=== PATIENT | male | born 1960 | race Caucasian/White ===

== ENCOUNTER → 2023-06-01 | Outpatient (CLI) | payer BC ==
--- NOTE | 2023-06-01 12:51 | XR ---
EXAMINATION TYPE: XR chest 2V DATE OF EXAM: 06/01/2023 12:37 PM CLINICAL INDICATION:Male, 62 years old with history of R91.8 CH XR 2V; COMPARISON: None TECHNIQUE: XR chest 2V Frontal and lateral views of the chest. FINDINGS: Lungs/Pleura: There is no evidence of pleural effusion, focal consolidation, or pneumothorax. Pulmonary vascularity: Unremarkable. Heart/mediastinum: Cardiomediastinal silhouette is unremarkable. Musculoskeletal: No acute osseous pathology. IMPRESSION: No acute cardiopulmonary disease/process.
== END | disposition home or self-care (01) ==
LOC: RADXRMAIN 12:19
PROVIDERS: ATTEND Internal Medicine
DX: R91.8 Other nonspecific abnormal finding of lung field (principal)
CPT/HCPCS: 71046

== ENCOUNTER → 2023-06-16 | Outpatient (CLI) | payer BC ==
--- NOTE | 2023-06-17 05:59 | CT ---
EXAMINATION TYPE: CT chest wo con DATE OF EXAM: HISTORY: Cough x 5 weeks TECHNIQUE: CT scan of the thorax is performed without IV contrast. Automated Exposure Control for D ose Reduction was Utilized. CT DLP: 571.0 mGycm. COMPARISON: None FINDINGS: LUNGS/PLEURAL SPACES: The airways are patent. There is diffuse mild bronchial wall thickening and the re is reticular nodular opacity throughout much of the posterior right lower lobe, these changes are consistent with inflammatory/infectious etiology. There is no jeannine pulmonary consolidation. No major atelectasis. No evidence of pulmonary edema. Pleural spaces are negative. MEDIASTINUM: Lack of IV contrast is noted to limit evaluation for mediastinal and especially hilar ad enopathy. There are no definitive greater than 1 cm hilar or mediastinal lymph nodes. Thyroid and eso phagus are unremarkable. There is no cardiomegaly or pericardial effusion, but left and right coronary calcifications noted. A gwendolyn is not dilated. MPA is not dilated UPPER ABDOMEN: 6 cm hiatal hernia noted. IMPRESSION: Inflammatory/infectious pulmonary findings. Right and left coronary calcifications.
== END | disposition home or self-care (01) ==
LOC: RADCTMAIN 16:26
PROVIDERS: ATTEND Family Medicine
DX: J98.4 Other disorders of lung (principal); R91.8 Other nonspecific abnormal finding of lung field
CPT/HCPCS: 71250

== ENCOUNTER → 2023-07-18 | Outpatient (CLI) | payer BC ==
--- NOTE | 2023-07-20 11:15 | MR ---
EXAMINATION TYPE: MR Prostate wo/w con DATE OF EXAM: 07/18/2023 7:19 AM COMPARISON: CT 03/13/2022 CLINICAL INDICATION:Male, 62 years old with history of R97.20 ELEVATED PROSTATE SPECIFIC ANTIGEN; El evated PSA. TECHNIQUE: Multi-planar, multi-sequence imaging of the pelvis is performed prior to and following the uncomplicated administration of bolus intravenous gadolinium. CONTRAST: 9 Gadavist Interpretive Criteria: PI-RADS v2.1 SERUM PSA: 0.87 on May 2022. 10.7 on June 2023.. SURGICAL PATHOLOGY: No data available. FINDINGS: Prostatic dimensions: 5.7 x 5.5 x 4.8 cm. Ellipsoid Volume:78.79 (PSA density=0.14 ng/mL/mL) CENTRAL GLAND (Central and Transition Zones/CZ+TZ): Multiple bilateral, heterogenous appearing hypertrophic stromal nodules, without suspicious lesion. M edian lobe hypertrophy with protrusion into the base of the bladder. (PI-RADS 2) PERIPHERAL ZONE (PZ): Bilateral linear, indistinct wedgelike areas of low ADC, and low T2 signal, No evidence of masslike a bnormality, or localized perfusional hypervascularity, to further suggest a focus of clinically signi ficant prostate cancer. (PI-RADS 2) SEMINAL VESICLES (SV): Symmetric and unremarkable. PERIPROSTATIC TISSUES: Unremarkable. LYMPH NODES: No enlarged pelvic lymph node. REMAINING PELVIS: Bladder wall is within normal limits given distention. No abnormal free or organized intrapelvic fluid collection. No pathologic bowel dilation or mural thickening. Colonic diverticula are present. No hernia visualized OSSEOUS STRUCTURES: No suspicious osseous abnormality. IMPRESSION: 1. No specific features for high-risk prostate cancer. Maximum PI-RADS score: 2. 2. Moderate BPH, estimated gland volume 78.79 mL. 3. No suspicious osseous lesion. No lymphadenopathy. No evidence of prostate adenocarcinoma involving the periprostatic tissues.
== END | disposition home or self-care (01) ==
LOC: RADMRIMAIN 06:18
PROVIDERS: ATTEND Urology
DX: N40.0 Benign prostatic hyperplasia without lower urinary tract symptoms (principal); R97.20 Elevated prostate specific antigen [PSA]
CPT/HCPCS: 72197; A9585

== ENCOUNTER → 2023-08-03 | Outpatient (CLI) | payer BC ==
[2023-08-03 16:34] LABS: Chol/HDL Ratio 4.36 Ratio; LDL Cholesterol,Calculated 141.3 mg/dL (0.0-131.0)
[2023-08-04 03:49] LABS: Apolipoprotein A1 156 mg/dL (110 - 205)
[2023-08-04 09:53] LABS: Lipoprotein A <5 mg/dL (0-30)
== END | disposition home or self-care (01) ==
LOC: LABWHC1 07:12
PROVIDERS: ATTEND Internal Medicine
DX: I25.10 Atherosclerotic heart disease of native coronary artery without angina pectoris (principal); E78.5 Hyperlipidemia, unspecified
CPT/HCPCS: 36415; 80061; 82172; 83695

== ENCOUNTER → 2023-08-29 | Outpatient (CLI) | payer BC ==
[2023-08-29 11:28] LABS: ALT 37 U/L (10-49); AST 27 U/L (14-35); Chol/HDL Ratio 5.66 Ratio; LDL Cholesterol,Calculated 153.5 mg/dL (0.0-131.0)
== END | disposition home or self-care (01) ==
LOC: LABWHC1 07:18
PROVIDERS: ATTEND Internal Medicine
DX: E78.2 Mixed hyperlipidemia (principal)
CPT/HCPCS: 36415; 80061; 84450; 84460

== ENCOUNTER → 2023-09-22 | Outpatient (CLI) | payer BC ==
--- NOTE | 2023-09-22 12:09 | CT ---
EXAMINATION TYPE: CT chest w con DATE OF EXAM: 09/22/2023 COMPARISON: 06/16/2023 and 03/13/2022 HISTORY: 63-year-old male J18.1 LOBAR PNEUMONIA, UNSPECIFIED ORGANISM TECHNIQUE: Contiguous axial scanning of the chest after the administration of 100 mL of Isovue 300. Coronal/sagittal reconstructions performed. CT DLP: 365mGycm. Automatic exposure control utilized for a dose reduction. FINDINGS: The heart is normal size without pericardial effusion. Aorta is normal caliber within the infarct versus a branching anatomy. An 8 mm lower right paratracheal lymph node is slightly larger but probably reactive/post inflammator y. There is a 1.7 cm right hilar lymph node and 1.3 cm right bronchial lymph node. Otherwise, no thor acic lymphadenopathy by CT size criteria. Mild dependent atelectasis. Mild diffuse bronchial wall thickening. No consolidation or pleural effus ion. The previous tree-in-bud infiltrate posterior right midlung and right base have resolved. Small to moderate-sized hiatal hernia. Underlying fatty infiltration of the liver. Partially visualiz ed exophytic cyst posterior left kidney measuring up to 2.4 cm. There is a splenic artery aneurysm measuring 2.2 cm, relatively unchanged compared to 03/13/2022. Bones: No osseous destructive process. IMPRESSION: 1. Previous tree-in-bud infiltrate posterior right midlung and right base have resolved. 2. A few prominent lymph nodes at the right hilum measures 1.7 cm, likely reactive/post inflammatory. Six-month follow-up CT chest to ensure stability/resolution. 3. Small to moderate-sized hiatal hernia and hepatic steatosis. Stable 2.2 cm splenic artery aneurysm compared to 2021.
== END | disposition home or self-care (01) ==
LOC: RADCTMAIN 07:10
PROVIDERS: ATTEND Internal Medicine
DX: K44.9 Diaphragmatic hernia without obstruction or gangrene (principal); J18.1 Lobar pneumonia, unspecified organism; K76.0 Fatty (change of) liver, not elsewhere classified; I72.8 Aneurysm of other specified arteries; R91.8 Other nonspecific abnormal finding of lung field
CPT/HCPCS: 71260; Q9967

== ENCOUNTER → 2023-11-03 | Outpatient (CLI) | payer BC ==
[2023-11-03 15:51] VITALS: BP 165/106; PULSE 86; RESP 16; TEMP 97.8
--- NOTE | 2023-11-03 16:09 | P.SLEEP ---
History of Present Illness DATE: 11/03/2023 CONSULTATION/NEW PATIENT EVALUATION HISTORY OF PRESENT ILLNESS/SLEEP-WAKE EVALUATION: 63-year-old gentleman had b een evaluated in the sleep center for possible obstructive sleep apnea hypopnea syndrome. SLEEP SCHEDULE: Usually sleep schedule from 9 PM to 5 AM on weekdays and until 6 AM on weekend. FALLING ASLEEP: No problems with falling asleep. DURING SLEEP: Patient has loud snoring and multiple awakenings from sleep. No history of hypnogogical hallucinations, sleep paralysis, or cataplexy. DURING THE DAY/WAKE STATE: Patient feels sleepiness during the day. [place] sleepiness scale is significantly increased to 15. Patient may take up to 2 naps. PAST MEDICAL HISTORY: BPH, acid reflux, allergy,. PAST SURGICAL HISTORY: Skull fracture 1982, right eye surgery and enucleation secondary to trauma in 1992. MEDICATIONS: Please see below. SOCIAL HISTORY: Please see below. FAMILY HISTORY: Hypertension, heart problems, cancer. REVIEW OF SYSTEMS: Multiple awakenings from sleep, sleepiness during the day. No fevers. No double vision. No recent chest pain. No shortness of breath. No abdominal pain. No bleeding episodes. No blood in urine. No seizure episodes. PHYSICAL EXAMINATION: GENERAL: A pleasant patient without any distress. VITAL SIGNS: Please see below. Weight 197 pounds, BMI 30.8. HEENT: MEGAN, EOMI. Evaluation of oropharynx showed tongue protrudes midline, low position of soft palate Mallampati 4. NECK: Supple. No JVD. Thyroid is not palpable. 16.5 inches in circumference. LUNGS: Clear to percussion and to auscultation. Good air exchange. No wheezing or rhonchi. HEART: S1, S2 regular. No murmurs, gallops or rubs. ABDOMEN: Soft and nontender. Bowel sounds are present. No organomegaly appreciated. EXTREMITIES: No clubbing or cyanosis. RECEPTIONIST/TELEPHONE OPERATOR: Awake, alert, and oriented x3. Cranial nerves 2 to 7 intact. There is no fasciculation or atrophy noted. No focal deficits observed. Right-sided blindness. ASSESSMENT: 1. Snoring, multiple awakenings from sleep, extremely low position of soft palate Mallampati 4, sleepiness with [place] Sleepiness Scale 15. Obstructive sleep apnea hypopnea syndrome. 2. History of BPH. 3. Acid reflux. 4. Allergy. 5 status post skull fracture. 6 . Status post right eye trauma, surgery and enucleation. PLAN: 1. Polysomnography for evaluation of patient's breathing during sleep. 2. CPAP/BiPAP titration if sleep study confirms obstructive sleep apnea- hypopnea syndrome. 3. Preferable position during sleep on the side. 4. No driving if patient feels any sleepiness. Patient is aware of civil and criminal liability for unsafe driving. 5. Sleep hygiene with regular sleep time for at least 7.5-8 hour s. 6. Watching weight. Thank you very much for referring this patient for consultation. Sincerely, Daniel Melendez MD, PhD, FAASM. Diplomat of [place] [employer], Sleep Medicine Board by [place] [employer] [place] [employer] Industrial Relations Specialist of [facility] [place] Past Medical History Past Medical History: GERD/Reflux Additional Past Medical History / Comment(s): ENVIROMENTAL ALLERGIES ON LOLA History of Any Multi-Drug Resistant Organisms: None Reported Past Surgical History: Hernia Repair Additional Past Surgical History / Comment(s): RT MIDDLE FINGER CUT TIP OFF, RT EYE PROSTATIC Past Anesthesia/Blood Transfusion Reactions: No Reported Reaction Past Psychological History: No Psychological Hx Reported Smoking Status: Former smoker Past Alcohol Use History: Occasional Past Drug Use History: None Reported - Past Family History Father Family Medical History: Cancer, Coronary Artery Disease (CAD), Hyperlipidemia, Hypertension Mother Family Medical History: Coronary Artery Disease (CAD), Hypertension Medications and Allergies Home Medications Medication Instructions Recorded Confirmed Type Fexofenadine HCl [Lola Allergy] 180 mg PO DAILY 11/03/23 11/03/23 History Omeprazole 20 mg PO DAILY 11/03/23 11/03/23 History Tamsulosin [Flomax] 0.4 mg PO DAILY 11/03/23 11/03/23 History Physical Exam Vitals: Vital Signs Temp Pulse Resp BP Pulse Ox 11/03/23 15:50 97.8 F 86 16 165/106 95 Intake and Output 11/03/23 11/03/23 11/03/23 06:59 14:59 22:59 Other: Weight 89.358 kg Sleep Note - Sleep Data ESS Total: 15 - Sleep Note Sleep Note: Temperature: 97.8 F Pulse Rate: 86 Respiratory Rate: 16 Blood Pressure: 165/106 SpO2: 95 Height: 5 ft 7 in Weight: 89.358 kg BMI: Neck Circumference: 16.5
== END ==
LOC: 3 N SLEEP 14:58
PROVIDERS: ATTEND Internal Medicine
DX: G47.33 Obstructive sleep apnea (adult) (pediatric) (principal); K21.9 Gastro-esophageal reflux disease without esophagitis; N40.0 Benign prostatic hyperplasia without lower urinary tract symptoms; T78.40XA Allergy, unspecified, initial encounter; Z86.69 Personal history of other diseases of the nervous system and sense organs; Z87.81 Personal history of (healed) traumatic fracture; Z98.890 Other specified postprocedural states; Z87.891 Personal history of nicotine dependence
CPT/HCPCS: 99211

== ENCOUNTER → 2023-12-06 | Outpatient (CLI) | payer BC ==
--- NOTE | 2023-12-07 11:41 | P.PCN ---
Description of Procedure: CLINICAL: A home sleep apnea test has been done for confirmation of possible obstructive sleep apnea-hypopnea syndrome. DESCRIPTION OF PROCEDURE: RESULTS: Recording time was 7 hours 43 minutes. Evaluation time was 7 hours 21 minutes. Evaluation time is sufficient for making conclusion about results of the test. Raw data of sleep recording has been reviewed and is adequate. Respiratory channel showed 1 apneas and 46 hypopneas. Apnea-hypopnea index was 6.4 per hour. Pulse rate in the range between minimum 49, maximum 100, average 61 by computer calculation. Lowest desaturation was 80%. IMPRESSION: 1. Mild obstructive Sleep Apnea Hypopnea Syndrome. Patient has symptoms of excessive daytime sleepiness with extremely high [place] Sleepiness Scale of 15. Please see other impressions from consultation. PLAN: 1. The patient will be started on auto-PAP treatment for correction of respiratory abnormallities during sleep. 2. I will see patient for follow up visit to discuss results of the test, evaluate clinical response on treatment with PAP therapy and make any necessary adjustments related to mask fitting, pressure, and humidification. 3. Watching weight. 4. Sleep hygiene with regular time in bed for at least 8 hours. 5. No driving if feeling any sleepiness. 6. If patient will continue to have symptoms of significant excessive daytime sleepiness while on treatment with CPAP for mild obstructive sleep apnea hypopnea syndrome, we may consider multiple sleep latency test for differential diagnosis with hypersomnia. Thank you very much for allowing me to participate in the management of your patient. Sincerely, Daniel Melendez MD, PhD, FAASM Diplomat of [place] [employer] Sleep Medicine Board of [place] [employer] Manager Of Transportation of [facility] [place] cc:Gonzalo Rothman MD
== END ==
LOC: 3 N SLEEP 16:30
PROVIDERS: ATTEND Internal Medicine
DX: G47.33 Obstructive sleep apnea (adult) (pediatric) (principal); G47.10 Hypersomnia, unspecified

== ENCOUNTER 2024-04-30 06:46 | Emergency (ER) | payer BC ==
[2024-04-30 06:52] VITALS: RESP 18; TEMP 97.4
[2024-04-30] MEDS: OXYMETAZOLINE 0.05% NASL SPRAY 1 SPRAY BOTTLE NASAL STA (07:22)
[2024-04-30] MEDS: hydrALAZINE HCL 20 MG/ML 1 ML VIAL IVP STA ×2 (07:31→07:51)
[2024-04-30 07:39] LABS: Basophils % (A) 1 %; Eosinophils # (A) 0.2 k/uL (0-0.7); Eosinophils % (A) 2 %; HCT 49.4 % (39.0-53.0); HGB 16.4 gm/dL (13.0-17.5); Lymphocytes # (A) 1.8 k/uL (1.0-4.8); Lymphocytes % (A) 25 %; MCH 27.1 pg (25.0-35.0); MCHC 33.1 g/dL (31.0-37.0); MCV 81.7 fL (80.0-100.0); Mean Platelet Volume 6.9; Monocytes # (A) 0.6 k/uL (0-1.0); Monocytes % (A) 8 %; Neutrophils # (A) 4.5 k/uL (1.3-7.7); Neutrophils % (A) 62 %; Platelet Count 185 k/uL (150-450); RBC 6.05 m/uL (4.30-5.90); RDW 14.4 % (11.5-15.5); WBC 7.4 k/uL (3.8-10.6)
[2024-04-30] MEDS: TRANEXAMIC ACID 1,000 MG/10 ML VIAL MISCELLANE ONE (07:44)
--- NOTE | 2024-04-30 07:49 | ED ---
ENT HPI - General Chief complaint: ENT Stated complaint: Nose bleed Time Seen by Provider: 04/30/24 06:53 Source: patient, RN notes reviewed Mode of arrival: ambulatory Limitations: no limitations - History of Present Illness Initial comments: 63-year-old male presents emergency department chief complaint of epistaxis. Patient states he has been having on and off bleeding out of his right nostril. Patient states that he usually gets it to stop but states this wants to still bleeding minimally. Patient states he recently has a history of hypertension but is not on any medications. He denies any headache or dizziness no chest pain or shortness of breath. - Related Data Home Medications Medication Instructions Recorded Confirmed Fexofenadine HCl [Lola Allergy] 180 mg PO DAILY 11/03/23 11/03/23 Omeprazole 20 mg PO DAILY 11/03/23 11/03/23 Tamsulosin [Flomax] 0.4 mg PO DAILY 11/03/23 11/03/23 Previous Rx's Medication Instructions Recorded lisinopriL [Zestril] 10 mg PO DAILY #30 tab 04/30/24 Allergies Allergy/AdvReac Type Severity Reaction Status Date / Time No Known Allergies Allergy Verified 04/30/24 06:47 Review of Systems ROS Statement: Those systems with pertinent positive or pertinent negative responses have been documented in the HPI. ROS Other: All systems not noted in ROS Statement are negative. Past Medical History Past Medical History: GERD/Reflux Additional Past Medical History / Comment(s): ENVIROMENTAL ALLERGIES ON LOLA History of Any Multi-Drug Resistant Organisms: None Reported Past Surgical History: Hernia Repair Additional Past Surgical History / Comment(s): RT MIDDLE FINGER CUT TIP OFF, RT EYE PROSTATIC Past Anesthesia/Blood Transfusion Reactions: No Reported Reaction Past Psychological History: No Psychological Hx Reported Smoking Status: Former smoker Past Alcohol Use History: Occasional Past Drug Use History: None Reported - Past Family History Father Family Medical History: Cancer, Coronary Artery Disease (CAD), Hyperlipidemia, Hypertension Mother Family Medical History: Coronary Artery Disease (CAD), Hypertension General Exam Limitations: no limitations General appearance: alert, in no apparent distress Head exam: Present: atraumatic, normocephalic, normal inspection Eye exam: Present: normal appearance, PERRL, EOMI. Absent: scleral icterus, conjunctival injection, periorbital swelling ENT exam: Present: mucous membranes moist, other (Minimal bleeding from right nare). Absent: normal exam Neck exam: Present: normal inspection, full ROM. Absent: tenderness, meningismus, lymphadenopathy Respiratory exam: Present: normal lung sounds bilaterally. Absent: respiratory distress, wheezes, rales, rhonchi, stridor Cardiovascular Exam: Present: regular rate, normal rhythm, normal heart sounds. Absent: systolic murmur, diastolic murmur, rubs, gallop, clicks Course Vital Signs 04/30/24 04/30/24 04/30/24 06:47 07:29 07:45 Temperature 97.4 F L Pulse Rate 82 83 Respiratory 18 18 Rate Blood Pressure 184/116 190/124 177/119 O2 Sat by Pulse 95 98 Oximetry 04/30/24 04/30/24 04/30/24 08:00 08:13 08:26 Temperature Pulse Rate 90 80 Respiratory 18 Rate Blood Pressure 172/107 159/103 148/96 O2 Sat by Pulse 96 96 Oximetry Medical Decision Making - Medical Decision Making Was pt. sent in by a medical professional or institution ([facility], [facility], urgent care, hospital, or long term...) When possible be specific @ -No Did you speak to anyone other than the patient for history (EMS, parent, family, police, friend...)? What history was obtained from this source @ -No Did you review nursing and triage notes (agree or disagree)? Why? @ -I reviewed and agree with nursing and triage notes Were old charts reviewed (outside hosp., previous admission, EMS record, old EKG, old radiological studies, urgent care reports/EKG's, long term records)? Report findings @ -No old charts were reviewed Differential Diagnosis (chest pain, altered mental status, abdominal pain women, abdominal pain men, vaginal bleeding, weakness, fever, dyspnea, syncope, headache, dizziness, GI bleed, back pain, seizure, CVA, palpatations, mental health, musculoskeletal)? @ -Epistaxis, nasal abrasion, septal hematoma EKG interpreted by me (3pts min.). @ -None X-rays interpreted by me (1pt min.). @ -None done CT interpreted by me (1pt min.). @ -None done U/S interpreted by me (1pt. min.). @ -None done What testing was considered but not performed or refused? (CT, X-rays, U/S, labs)? Why? @ -None What meds were considered but not given or refused? Why? @ -None Did you discuss the management of the patient with other professionals (professionals i.e. , PA, [facility], lab, RT, psych nurse, social security benefits interviewer, liner reroll tender, teacher, air support control officer, case coordinator)? Give summary @ -No Was smoking cessation discussed for >3mins.? @ -No Was critical care preformed (if so, how long)? @ -No Were there social determinants of health that impacted care today? How? (Homelessness, low income, unemployed, alcoholism, drug addiction, transportation, low edu. Level, literacy, decrease access to med. care, shelter, rehab)? @ -No Was there de-escalation of care discussed even if they declined (Discuss DNR or withdrawal of care, Hospice)? DNR status @ -No What co-morbidities impacted this encounter? (DM, HTN, Smoking, COPD, CAD, Cancer, CVA, ARF, Chemo, Hep., AIDS, mental health diagnosis, sleep apnea, morbid obesity)? @ -None Was patient admitted / discharged? Hospital course, mention meds given and route, prescriptions, significant lab abnormalities, going to OR and other pertinent info. @ -Discharge patient presented for epistaxis recurrent patient noted to be hypertensive has had recent history of this but refused medication prior to today. Patient blood pressures improved was discharged on lisinopril, nasal spray with close follow-up. Undiagnosed new problem with uncertain prognosis? @ -No Drug Therapy requiring intensive monitoring for toxicity (Heparin, Nitro, Insulin, Cardizem)? @ -No Were any procedures done? @ -No Diagnosis/symptom? @ -Epistaxis hypertension Acute, or Chronic, or Acute on Chronic? @ -Acute Uncomplicated (without systemic symptoms) or Complicated (systemic symptoms)? @ -Uncomplicated Side effects of treatment? @ -No Exacerbation, Progression, or Severe Exacerbation? @ -No Poses a threat to life or bodily function? How? (Chest pain, USA, OR, pneumonia, PE, COPD, DKA, ARF, appy, cholecystitis, CVA, Diverticulitis, Homicidal, Suicidal, threat to staff... and all critical care pts) @ -No - Lab Data Result diagrams: 04/30/24 07:29 04/30/24 07:29 Lab Results 04/30/24 04/30/24 Range/Units 07:29 07:29 WBC 7.4 (3.8-10.6) k/uL RBC 6.05 H (4.30-5.90) m/uL Hgb 16.4 (13.0-17.5) gm/dL Hct 49.4 (39.0-53.0) % MCV 81.7 (80.0-100.0) fL MCH 27.1 (25.0-35.0) pg MCHC 33.1 (31.0-37.0) g/dL RDW 14.4 (11.5-15.5) % Plt Count 185 (150-450) k/uL MPV 6.9 Neutrophils % 62 % Lymphocytes % 25 % Monocytes % 8 % Eosinophils % 2 % Basophils % 1 % Neutrophils # 4.5 (1.3-7.7) k/uL Lymphocytes # 1.8 (1.0-4.8) k/uL Monocytes # 0.6 (0-1.0) k/uL Eosinophils # 0.2 (0-0.7) k/uL Basophils # 0.0 (0-0.2) k/uL Sodium 140 (137-145) mmol/L Potassium 4.3 (3.5-5.1) mmol/L Chloride 106 (98-107) mmol/L Carbon Dioxide 26 (22-30) mmol/L Anion Gap 8 mmol/L BUN 26 H (9-20) mg/dL Creatinine 0.87 (0.66-1.25) mg/dL Est GFR (CKD-EPI)AfAm >90 (>60 ml/min/1.73 sqM) Est GFR (CKD-EPI)NonAf >90 (>60 ml/min/1.73 sqM) Glucose 117 H (74-99) mg/dL Calcium 9.3 (8.4-10.2) mg/dL Total Bilirubin 0.4 (0.2-1.3) mg/dL AST 24 (17-59) U/L ALT 29 (4-49) U/L Alkaline Phosphatase 91 (38-126) U/L Total Protein 7.0 (6.3-8.2) g/dL Albumin 4.5 (3.5-5.0) g/dL Disposition Clinical Impression: Epistaxis, Hypertension Disposition: HOME SELF-CARE Condition: Stable Instructions (If sedation given, give patient instructions): Nosebleed (ED) Additional Instructions: Please return to the Emergency Department if symptoms worsen or any other concerns. Prescriptions: lisinopriL [Zestril] 10 mg PO DAILY #30 tab Is patient prescribed a controlled substance at d/c from ED?: No Referrals: Gonzalo Rothman MD [Primary Care Provider] - 1-2 days Time of Disposition: 08:40
[2024-04-30 07:54] LABS: ALT 29 U/L (4-49); AST 24 U/L (17-59); African American GFR (CKD) >90 (>60 ml/min/1.73 sqM); Albumin 4.5 g/dL (3.5-5.0); Alkaline Phosphatase 91 U/L (38-126); Anion Gap 8 mmol/L; Blood Urea Nitrogen 26 mg/dL (9-20); Calcium 9.3 mg/dL (8.4-10.2); Carbon Dioxide 26 mmol/L (22-30); Chloride 106 mmol/L (98-107); Glucose 117 mg/dL (74-99); Non-African American GFR(CKD) >90 (>60 ml/min/1.73 sqM); Potassium 4.3 mmol/L (3.5-5.1); Sodium 140 mmol/L (137-145); Total Bilirubin 0.4 mg/dL (0.2-1.3)
[2024-04-30 08:28] VITALS: BP 148/96; PULSE 80
[2024-04-30] MEDS: lisinopriL 10 MG TAB PO STA (08:29)
== END 2024-04-30 08:48 | disposition home or self-care (01) ==
LOC: EC 06:46
DX: R04.0 Epistaxis (principal); I10 Essential (primary) hypertension; Z87.891 Personal history of nicotine dependence
CPT/HCPCS: 36415; 80053; 85025; 99283; 96374; J0360

== ENCOUNTER 2024-07-18 10:44 | Day surgery (SDC) | payer BC ==
[2024-07-16 09:40] VITALS: BMI 28.4
[~2024-07-18 10:44] MED LIST: HYDROmorphone 0.5 MG/0.5 ML SYRINGE IVP PRN
[2024-07-18] MEDS: IV FLUID CONTINUATION 1,000 ML IV ONE (11:13)
[2024-07-18 11:19] VITALS: RESP 16
[2024-07-18] MEDS: OXYMETAZOLINE 0.05% NASL SPRAY 1 SPRAY BOTTLE NASAL STA (11:50)
[2024-07-18] MEDS: ONDANSETRON 4 MG/2 ML VIAL IVP ONE (11:58)
[2024-07-18] MEDS: DEXAMETHASONE SOD PHOSPHATE 4 MG/ML 1 ML VIAL IV ONE (11:58)
[2024-07-18] MEDS: OXYMETAZOLINE 0.05% NASL SPRAY 1 SPRAY BOTTLE NASAL SCH (11:58)
[2024-07-18] MEDS: FAMOTIDINE 20 MG/2 ML VIAL IV PRN (12:01)
[2024-07-18] MEDS: LACTATED RINGERS 1,000 ML IV SCH (12:03)
[2024-07-18] MEDS ORDERED: PROPOFOL 10 MG/ML 20 ML VIAL IV ONE (12:57)
[2024-07-18] MEDS ORDERED: MIDAZOLAM 2 MG/2 ML VIAL ONE (12:57)
[2024-07-18] MEDS ORDERED: SUCCINYLCHOLINE CHLORIDE 200 MG/10 ML VIAL IV ONE (12:57)
[2024-07-18] MEDS ORDERED: DEXAMETHASONE SOD PHOSPHATE 10 MG/ML 1 ML VIAL ONE (12:57)
[2024-07-18] MEDS ORDERED: LIDOCAINE 1% INJ 10MG/ML (20 ML MDV) ONE (12:57)
[2024-07-18] MEDS ORDERED: PHENYLEPHRINE 10 MG/ML VIAL ONE (12:57)
[2024-07-18] MEDS ORDERED: fentaNYL (PF) 50 MCG/ML 2 ML AMP ONE (12:57)
[2024-07-18] MEDS: LIDOCAINE 1%-EPI 1:100,000 20 ML VIAL SUBMUCOSAL ONE (13:12)
--- NOTE | 2024-07-18 13:45 | P.OP ---
Date of Procedure: 07/18/24 Preoperative Diagnosis: deviated nasal septum Inferior turbinate hypertrophy Postoperative Diagnosis: same Procedure(s) Performed: septoplasty Outfracture and submucous resection of the inferior turbinates Anesthesia: STEVENA Surgeon: Win Granados Estimated Blood Loss (ml): 5 Pathology: other (nasal septal bone and cartilage) Condition: stable Disposition: PACU Indications for Procedure: this 63-year-old white male with difficulties with chronic nasal airway obstruction and congestion which has not improved despite medical management such as steroid nasal sprays. He does have also underlying ALLERGIES Operative Findings: nasal septum deviated to the left anteriorly to the right posteriorly as well as a sharp septal spur to the left posteriorly with inferior turbinate hypertrophy bilaterally Description of Procedure: DESCRIPTION OF PROCEDURE: The patient was brought to the operative suite, placed in the supine position. The patient underwent induction of general anesthesia with oral endotracheal intubation without difficulty. The patient was prepped and draped in the usual aseptic fashion. 1% lidocaine with 1:100,000 epinephrine was infused submucosally on both sides of the nasal septum. While this was taking vasoconstrictive effect, the inferior turbinates were infractured with a Emerson elevator. Partial submucous resection of the inferior turbinates was performed with Coblation device ablating a portion of the submucosal soft tissue. The inferior turbinates were then outfractured with a Emerson elevator. A left hemitransfixion incision was then made through the mucoperichondrial. Mucoperiosteal flap on the left elevated. Bony cartilaginous junction was disarticulated and mucoperiosteal flap on the right was elevated. Bony nasoseptal deformity were removed with Kris forceps and an inferior car tilaginous strip was removed, leaving a full 1.5 cm caudal strut. Checking intranasally, this corrected the nasal septal deformities and the hemitransfixion incision was closed with running 4-0 chromic suture. The bilateral Jean airway splints coated in bacitracin ointment were placed in the nasal cavities and sutured transseptally with 4-0 nylon suture. The patient was then suctioned in an orogastric fashion. The patient was allowed to emerge from general anesthesia, having tolerated the procedure well and was extubated in the operating suite, transferred to postoperative recovery area in satisfactory condition.
[2024-07-18 14:02] VITALS: TEMP 97.5
[2024-07-18 15:16] VITALS: BP 136/91; PULSE 66
== END 2024-07-18 15:38 | disposition home or self-care (01) ==
LOC: OR 10:44
PROVIDERS: ATTEND Otolaryngology
DX: J34.2 Deviated nasal septum (principal); J34.3 Hypertrophy of nasal turbinates; J30.89 Other allergic rhinitis; K21.9 Gastro-esophageal reflux disease without esophagitis; I10 Essential (primary) hypertension; E78.5 Hyperlipidemia, unspecified; G47.33 Obstructive sleep apnea (adult) (pediatric); R25.0 Abnormal head movements; F10.99 Alcohol use, unspecified with unspecified alcohol-induced disorder; Z87.891 Personal history of nicotine dependence; Z90.49 Acquired absence of other specified parts of digestive tract; Z79.899 Other long term (current) drug therapy
CPT/HCPCS: 30520; 30140; J2250; J0330; J1100 ×2; J0690; J2405; J2003; J3010; J3490; J2704; J2371